=== PATIENT | female | born 1935 | race Caucasian/White ===

== ENCOUNTER 2019-01-25 05:14 | Inpatient (IN) ==
[2019-01-25] MEDS ORDERED: DUONEB (A & A) INH ONE ×2 (05:24→06:02)
--- NOTE | 2019-01-25 05:50 | EKG Report ---
Test Performed on : 01/25/2019 05:24:28 AM Test Reason : sob Blood Pressure : / mmHG Vent. Rate : 077 BPM Atrial Rate : 072 BPM P-R Int : 000 ms QRS Dur : 086 ms QT Int : 372 ms P-R-T Axes : 000 095 173 degrees QTc Int : 420 ms Atrial fibrillation. with premature ventricular or aberrantly conducted complexes. Rightward axis Low voltage QRS Septal infarct , age undetermined Abnormal ECG When compared with ECG of 06-JUN-2018 11:40, Atrial fibrillation. has replaced Sinus rhythm. Right bundle branch block is no longer present Septal infarct is now present Unconfirmed Result
[2019-01-25 06:23] LABS: INR 0.99; PROTIME 13.6 Seconds (11.0-16.0)
[2019-01-25 06:24] LABS: BASO# 0.04 X1000 (0.0-0.2); BASO% 0.4 % (0.0-0.8); EOS# 0.45 X1000 (0.0-0.7); EOS% 4.2 % (0.0-10.0); HEMATOCRIT 35.2 % (37.0-47.0); HEMOGLOBIN 11.5 g/dL (12.0-16.0); IMM GRAN# 0.02 X1000 (0.0-0.04); IMM GRAN% 0.2 % (0.0-0.5); LYMPH# 4.15 X1000 (1.2-3.4); MCH 27.4 PG (27-31); MCHC 32.7 g/dL (33-37); MONO# 1.22 X1000 (0.11-0.59); MONO% 11.5 % (1.7-9.3); NEUT# 4.77 X1000 (1.4-6.5); NEUT% 44.7 % (42.2-75.2); PLT 370 X1000 (130-400); PTT 40.1 Seconds (22.3-41.8); RBC 4.19 XMIL (4.2-5.4); RDW 16.5 % (11.5-14.5); WBC 10.65 X1000 (4.8-10.8)
[2019-01-25 06:40] LABS: ALBUMIN 4.2 g/dL (3.5-5.0); CALCIUM 9.7 mg/dL (8.8-10.2); CREATININE 1.1 mg/dL (0.5-0.9); POTASSIUM 4.8 mmol/L (3.5-5.1); TOTAL PROTEIN 7.1 g/dL (6.3-8.3)
[2019-01-25] MEDS ORDERED: ROCEPHIN 1 GM in NS 50 ML IV ONE (06:51)
[2019-01-25] MEDS ORDERED: ALBUTEROL NEB INH ONE (06:52)
[2019-01-25] MEDS ORDERED: ZITHROMAX 500 MG/NS 500 MG/250 ML IVPB IV ONE (06:52)
--- NOTE | 2019-01-25 06:59 | PROVIDER DOCUMENTATION ---
HPI-General Adult - General Chief Complaint: Shortness of Breath Stated Complaint: SOB Time Seen by Provider: 01/25/19 05:42 Source: patient Allergies/Adverse Reactions: Patient Allergies Allergy/AdvReac Type Severity Reaction Status Date / Time No Known Allergies Allergy Verified 01/25/19 05:27 Home Medications: Home Medication List Medication Instructions Recorded Confirmed Last Taken Type Amlodipine Besylate 10 mg PO DAILY 05/14/14 01/25/19 Unknown History Carvedilol 6.25 mg PO BID CC 05/14/14 01/25/19 Unknown History Omeprazole 20 mg PO DAILY@0700 05/14/14 01/25/19 Unknown History Simvastatin 40 mg PO QHS 05/14/14 01/25/19 Unknown History Aspirin [Aspir-Low] 81 mg PO DAILY 06/04/18 01/25/19 Unknown History Cholecalciferol (Vitamin D3) 2,000 unit PO DAILY 06/04/18 01/25/19 Unknown History [D3-2000] Fenofibrate Nanocrystallized 145 mg PO QHS 06/04/18 01/25/19 Unknown History [Fenofibrate] Hydrochlorothiazide 25 mg PO DAILY 06/04/18 01/25/19 Unknown History Levothyroxine [Synthroid] 100 microgm PO DAILY@0700 06/04/18 01/25/19 Unknown History Melatonin 5 mg PO QHS 06/04/18 01/25/19 Unknown History Multivit-Minerals/Folic/Ginkgo 1 ea PO DAILY 06/04/18 01/25/19 Unknown History [One Daily For Women 50+ Adv Tb] Polyethylene Glycol 3350 1,700 gm PO DAILY 06/04/18 01/25/19 Unknown History [Laxaclear] Ubidecarenone [Coenzyme Q10] 100 mg PO DAILY 06/04/18 01/25/19 Unknown History Cyclosporine 0.05% Oph Drops 1 drp BOTH EYES BID 01/25/19 01/25/19 Unknown History [Restasis 0.05% Oph Drops] Losartan/Hctz [Hyzaar 50/12.5 mg] 1 ea PO DAILY PRN 01/25/19 01/25/19 Unknown History Sertraline HCl 25 mg PO HS 01/25/19 01/25/19 Unknown History - History of Present Illness -Gen Adult Nature of Presenting Problems: Patient is a 83 year old white female who presents with worsening cough, orthopnea, swelling, and weight gain for past 1-2 weeks. She states it has been much worse since yesterday. No documented fever or CP. SOB is worse with exert ion. Followed by Dr. Frausto. Review of Systems - Adult - REVIEW OF SYSTEMS - ADULT Constitutional: reports: fatijimbo. denies: fever Eyes: reports: no symptoms reported Ears, Nose, Mouth & Throat: reports: no symptoms reported Cardiovascular: reports: no symptoms reported Respiratory: reports: see HPI Gastrointestinal: reports: no symptoms reported Genitourinary: reports: no symptoms reported Musculoskeletal: reports: no symptoms reported Integumentary: reports: no symptoms reported Neurological: reports: no symptoms reported Psychiatric: reports: no symptoms reported Endocrine: reports: no symptoms reported Hematologic/Lymphatic: reports: no symptoms reported Allergic/Immunologic: reports: no symptoms reported Past History - Adult - PAST MEDICAL HISTORY-ADULT Review of Records: reports: Nursing Assessment Review, Medications Reviewed Major Childhood Illnesses: reports: denies history Cardiovascular: reports: cardiac disease, CAD, HTN, hyperlipidemia Gastrointestinal: reports: GERD Endocrine/Immune: reports: thyroid disorder - PRIOR SURGERIES/PROCEDURES Surgical/Procedure History: reports: CABG, cholecystectomy - IMMUNIZATION STATUS Childhood Immunizations: See Nurse Assessment Flu Vaccine: See Nurse Assessment - FAMILY HISTORY Family History: reviewed, not pertinent Physical Exam-General - CONSTITUTIONAL General Appearance: mild distress (resp distress.) - EYES Eyes: PERRL/EOMI, pink conjunctivae - HEAD, EARS, NOSE, MOUTH & THROAT HENMT: normocephalic/atraumatic, moist mucous membranes, pharynx normal. negative: pharyngeal erythema - NECK Neck: non-tender, full range of motion - RESPIRATORY Respiratory: chest non-tender, accessory muscle use (mild.), other (diminished diffusely.) - CARDIOVASCULAR Cardiovascular: normal peripheral pulses, regular rate, rhythm, no edema, no JVD - GASTROINTESTINAL (ABDOMEN) Abdominal Exam: normal bowel sounds, non tender, soft - MUSCULOSKELETAL Back Exam: normal inspection, no CVA tenderness Extremity: normal range of motion, non-tender, normal capillary refill - SKIN Integumentary: normal color, normal turgor, warm/dry - NEUROLOGIC Neurologic: no motor/sensory deficits. negative: facial droop, focal weakness, sensory deficit - PSYCHIATRIC Psych/Mental Status: normal mood/affect Progress - PLAN OF CARE/RESULTS Progress/Plan/Lab Results: Vital Signs - 8 hr 01/25/19 05:25 01/25/19 05:30 01/25/19 06:10 Temperature 98.0 F Pulse Rate 84 75 74 Respiratory Rate 34 H 16 14 Blood Pressure 194/87 O2 Sat by Pulse Oximetry 90 L 94 L 95 01/25/19 06:29 Temperature Pulse Rate 77 Respiratory Rate 26 H Blood Pressure 165/94 O2 Sat by Pulse Oximetry 95 Laboratory Results - last 24 hr 01/25/19 01/25/19 01/25/19 05:43 05:43 05:43 WBC 10.65 RBC 4.19 L Hgb 11.5 L Hct 35.2 L MCV 84.0 MCH 27.4 MCHC 32.7 L RDW Std Deviation 16.5 H Plt Count 370 MPV 10.0 Immature Gran % (Auto) 0.2 Neut % (Auto) 44.7 Lymph % (Auto) 39.0 [place] % (Auto) 11.5 H Eos % (Auto) 4.2 Baso % (Auto) 0.4 Immature Gran # (Auto) 0.02 Neut # (Auto) 4.77 Lymph # (Auto) 4.15 H [place] # (Auto) 1.22 H Eos # (Auto) 0.45 Baso # (Auto) 0.04 PT 13.6 INR 0.99 PTT (Actin FS) 40.1 Sodium 132 L Potassium 4.8 Chloride 101 Carbon Dioxide 17 L Anion Gap 14 BUN 24 H Creatinine 1.1 H Estimated GFR/1.73 m2 48 BUN/Creatinine Ratio 22 Glucose 130 H Calculated Osmolality 270 Calcium 9.7 Total Bilirubin 1.00 AST 41 H ALT 16 Alkaline Phosphatase 82 Creatine Kinase 66 Troponin T Total Protein 7.1 Albumin 4.2 Globulin 3.0 Albumin/Globulin Ratio 1.0 01/25/19 05:43 WBC RBC Hgb Hct MCV MCH MCHC RDW Std Deviation Plt Count MPV Immature Gran % (Auto) Neut % (Auto) Lymph % (Auto) [place] % (Auto) Eos % (Auto) Baso % (Auto) Immature Gran # (Auto) Neut # (Auto) Lymph # (Auto) [place] # (Auto) Eos # (Auto) Baso # (Auto) PT INR PTT (Actin FS) Sodium Potassium Chloride Carbon Dioxide Anion Gap BUN Creatinine Estimated GFR/1.73 m2 BUN/Creatinine Ratio Glucose Calculated Osmolality Calcium Total Bilirubin AST ALT Alkaline Phosphatase Creatine Kinase Troponin T < 0.010 Total Protein Albumin Globulin Albumin/Globulin Ratio Orders Category Date Time Status Cardiac Monitoring DIRECTED Care 01/25/19 05:24 Active Oxygen Therapy- ED Nursing DIRECTED Care 01/25/19 05:24 Active Saline Loc NOW Care 01/25/19 05:24 Active CHEST-PORTABLE [RAD] Stat Exams 01/25/19 05:54 Taken BLOOD CULTURE [BLDCUL] Stat Lab 01/25/19 06:51 Uncollected CBC WITH ELECTRONIC DIFF [HEME] Stat Lab 01/25/19 05:43 Completed CK PROFILE [SP CHEM] Stat Lab 01/25/19 05:43 Completed COMPREHENSIVE METABOLIC PANEL [CHEM] Stat Lab 01/25/19 05:43 Completed LACTATE, PLASMA [CHEM] Stat Lab 01/25/19 06:53 Uncollected PRO B-NATRIURETIC PEPTIDE Stat Lab 01/25/19 05:43 Received PROTIME WITH INR [COAG] Stat Lab 01/25/19 05:43 Completed PTT [COAG] Stat Lab 01/25/19 05:43 Completed TROPONIN T Stat Lab 01/25/19 05:43 Completed Albuterol 2.5MG/Ipratrop 0.5MG [Duoneb (A & A)] Med 01/25/19 05:24 Discontinued 3 ml INH NOW ONE Albuterol 2.5MG/Ipratrop 0.5MG [Duoneb (A & A)] Med 01/25/19 06:02 Discontinued 3 ml INH NOW ONE Albuterol [Albuterol Neb] Med 01/25/19 06:52 Discontinued 2.5 mg INH NOW ONE Azithromycin 500 mg/Ns [Zithromax 500 mg/Ns] Med 01/25/19 06:52 Active 500 mg in 250 ml IV NOW CefTRIAXONE [Rocephin] 1 gm Med 01/25/19 06:51 Active 0.9% Sodium Chloride Inj [Ns] 50 ml IV NOW Aerosol Treatments Routine Oth 01/25/19 05:25 Completed Aerosol Treatments Routine Oth 01/25/19 06:02 Completed Aerosol Treatments Routine Oth 01/25/19 06:52 Active Aerosol Treatments Stat Ot 01/25/19 05:25 Completed Aerosol Treatments Stat Oth 01/25/19 06:02 Completed Aerosol Treatments Stat Oth 01/25/19 06:52 Active CP/SOB/Palp >45 yrs of Age Stat Oth 01/25/19 05:23 Ordered EKG [EKG] Stat Ther 01/25/19 05:24 Draft After neb tx x 2 she appeared more SOB, thus a 3rd was ordered. She has RLL pna on cxr. ABX ordered. Her 12 lead EKG shows afib with rate of 77. She was signed out to Dr Padgett on day shift at 0700. She will need admission. Result Diagrams: 01/25/19 05:43 01/25/19 05:43 - REASSESSMENT Reassessment #1 Time Reassessed: 07:15 Status: unchanged Reassessment Comment: Patient noted to have coarse bibasilar rales & BNP>500 0.Ordered Lasix/ABG - EKG 1 Time of EKG reading by physician:: 08:12 EKG Read and Signed by:: Cecil Padgett Rate: 69 Rhythm: NSR [place]: normal [place] Interval: prolonged (1st degree AVB, no STEMI) ST Wave: non-specific ST changes - XRAY 1 XRAY Study: Chest XRAY Interpretation: RLL infiltrate, cardiomegaly - CONSULTS/PCP/HOSPITALIST Notification #1 *Consult/PCP/Hospitalist*: Dr. Santoro, hospitalist Time Discussed: 08:00 Consult Disposition: Will see in ED, Admit Departure - Departure Date of Disposition Decision: 01/25/19 Time of Disposition Decision: 08:16 DIAGNOSIS: Congestive heart failure Qualifiers: Heart failure type: unspecified Heart failure chronicity: acute Qualified Code(s): I50.9 - Heart failure, unspecified RLL pneumonia Qualifiers: Pneumonia type: due to unspecified organism Qualified Code(s): J18.1 - Lobar pneumonia, unspecified organism Disposition: [facility]CHIATRIC HOSPITAL/[facility] Certified Medical Emergency: Emergent Condition: Stable - Critical Care Note This patient required my direct & personal management of CC.: No Attestation - Physician/ SUMMER Attestation Patient care was provided by Advanced Practice Provider:: No The physician spent face to face time with patient:: Yes Advanced Practice Provider documentation review:: Supervising physician onsite and consulted in the evaluation and care of this patient. The physician did have a face to face encounter with the patient.
[2019-01-25] MEDS ORDERED: LASIX IV ONE (07:20)
[2019-01-25] MEDS ORDERED: TYLENOL PO ONE (07:25)
[2019-01-25 07:48] LABS: BE -2.2 mmoll (-3.0-3.0); BLOOD TYPE ARTERIAL; HCO3-(ACT) 23.1 mmoll (20.0-26.0); O2(CT) 15.6 mL/dL (15.0-23.0); O2HB 93.7 % (95.0-99.0); PCO2(98.6) 30 mmHg (35-45); PO2(98.6) 68 mmHg (60-100); SAMPLE BLOOD; SAO2 95.8 % (95.0-100.0); THB 11.8 g/dL (11.5-17.4); pH(98.6) 7.45 (7.35-7.45)
[2019-01-25 07:55] LABS: ALLEN TEST YES; MODALITY CANNULA
--- NOTE | 2019-01-25 08:20 | Diag Imaging Result Doc PS360 ---
EXAM: CHEST-PORTABLE HISTORY: SOB TECHNIQUE: Single view of the chest was performed portably. COMPARISON: 06/04/2018 FINDINGS: There is cardiomegaly with vascular congestion and alveolar infiltrates new from prior study. Appearance suggests cardiogenic edema. No pleural effusions. There are median sternotomy wires. IMPRESSION: New vascular congestion seen alveolar infiltrates suspicious for cardiogenic edema. Electronically signed by Franny Ramirez 01/25/2019 8:18 AM
[2019-01-25] MEDS ORDERED: DUONEB (A & A) INH PRN (10:08)
[2019-01-25] MEDS ORDERED: ZOFRAN IV PRN (10:08)
[2019-01-25] MEDS ORDERED: TYLENOL PO PRN (10:08)
--- NOTE | 2019-01-25 10:29 | EKG Report ---
Test Performed on : 01/25/2019 08:11:34 AM Test Reason : pain Blood Pressure : / mmHG Vent. Rate : 069 BPM Atrial Rate : 069 BPM P-R Int : 352 ms QRS Dur : 098 ms QT Int : 432 ms P-R-T Axes : 090 085 148 degrees QTc Int : 462 ms Sinus rhythm. with 1st degree AV block. Nonspecific ST and T wave abnormality Abnormal ECG When compared with ECG of 25-JAN-2019 05:24, (Unconfirmed) Sinus rhythm. has replaced Atrial fibrillation. Criteria for Septal infarct are no longer present Nonspecific T wave abnormality no longer evident in Inferior leads Unconfirmed Result
[2019-01-25] MEDS: DUONEB (A & A) INH SCH ×4 (11:10→23:04)
[2019-01-25] MEDS: NORVASC PO SCH (11:17)
[2019-01-25] MEDS: ASPIRIN EC PO SCH (11:17)
[2019-01-25 13:14] LABS: URINE SOURCE CLEAN CATCH
[2019-01-25 13:19] LABS: BILIRUBIN URINE NEGATIVE (NEGATIVE); BLOOD URINE NEGATIVE (NEGATIVE); COLOR STRAW; GLUCOSE URINE NEGATIVE (NEGATIVE); KETONE URINE NEGATIVE (NEGATIVE); LEUKOCYTES URINE TRACE (NEGATIVE); NITRITE URINE NEGATIVE (NEGATIVE); PROTEIN URINE NEGATIVE (NEGATIVE); SP GRAVITY URINE 1.007; TURBIDITY URINE CLEAR (CLEAR); UROBILINOGEN URINE NORMAL (NORMAL)
[2019-01-25 13:20] LABS: UR EPITHELIAL CELLS <10 /HPF (<10); URINE BACTERIA NEGATIVE /HPF; URINE RBC <10 /HPF (<10); URINE WBC <10 /HPF (<10)
--- NOTE | 2019-01-25 15:34 | HISTORY AND PHYSICAL ---
PRIMARY CARE PROVIDER: Dr. Kale Frausto. CHIEF COMPLAINT: Shortness of breath. HISTORY OF PRESENT ILLNESS: Ms Awan is an 83-year-old female who carries a past medical history of coronary artery disease, status post CABG, hypertension, hyperlipidemia, hypothyroidism, diastolic congestive heart failure, who came to the ED for progressively worsening shortness of breath over the last week and a half. She has had a nonproductive cough as well as intermittent wheezes and a headache today, but no reported fever, chills, body aches, nausea, vomiting, or diarrhea, chest pain or palpitations. She came to the ED to be evaluated and was diagnosed with a left lower lobe pneumonia and congestive heart failure exacerbation. She was started on IV antibiotics and given a dose of IV Lasix and placed on supplemental O2. She will be admitted for further evaluation and treatment. PAST MEDICAL HISTORY: 1. Coronary artery disease status post CABG. 2. Hypertension. 3. Hyperlipidemia. 4. Hypothyroidism. 5. Congestive heart failure, diastolic, with a preserved EF of 60%. PAST SURGICAL HISTORY: Cholecystectomy and CABG. SOCIAL HISTORY: No tobacco, alcohol or illicit drug use. She lives with her daughter. She is a . 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 FAMILY HISTORY: Her father is from emphysema, mother from malignancy. REVIEW OF SYSTEMS: Twelve-point review of systems completely negative except for those mentioned in HPI. ALLERGIES: No known drug allergies. HOME MEDICATIONS: As per EMR. PHYSICAL EXAMINATION: VITAL SIGNS: Temperature is 98.3 degrees, heart rate 86, respirations 18, blood pressure 139/65, O2 is 96% on 2 L nasal cannula. GENERAL: Ms. Thorpe is an 83-year-old female who is sitting up in the hospital bed, somewhat short of breath but in no acute distress. HEENT: Atraumatic, normocephalic. PERRL. NECK: Supple. Trachea midline. I did not really appreciate any JVD. PULMONARY: Bilateral breath sounds relatively clear. CARDIOVASCULAR: S1, S2 appreciated. GASTROINTESTINAL: Soft, nontender, nondistended. Positive bowel sounds in four quadrants. LOWER EXTREMITIES: No edema. Bilateral pedal pulses are palpable. NEUROLOGIC: No focal deficits noted. DIAGNOSTIC DATA: Chest x-ray shows no vascular congestion seen; alveolar infiltrates suspicious for cardiogenic edema. EKG shows atrial fibrillation with premature ventricular or aberrant conducted complexes. Follow-up EKG shows a normal sinus rhythm with a first-degree AV block. LABORATORY DATA: White count 10, hemoglobin and hematocrit 11 and 35, platelet count is 370,000. Sodium 132, potassium 4.8, BUN 2.4, creatinine 1.1, blood glucose is 130, AST is 41, ALT 16. Troponin less than 0.010. ProBNP is 5495. ASSESSMENT AND PLAN: 1. Questionable left lower lobe pneumonia. The patient does have some dyspnea, nonproductive cough, as well as some wheezes. Initial chest x-ray was read as a left lower lobe pneumonia and she was initiated on intravenous antibiotics. We will continue with her treatment for now and recheck her chest x-ray in the morning and re-evaluate to see if she will need to continue on antibiotics in the morning. 2. Mild congestive heart failure exacerbation, diastolic. She does have a preserved ejection fraction. We will continue with intravenous Lasix twice a day, strict intake and output, daily weights. Recheck her proBNP in the morning. Her most recent echocardiogram was 60%. Follow up chest x-ray in the morning to see if there is any improvement. Continue on supplemental oxygen. 3. Known coronary artery disease. Denies any chest pain. We will continue to trend her cardiac enzymes, given her congestive heart failure exacerbation. 4. Hypertension. Continue home medications. 5. Hyperlipidemia. Will continue her statin. 6. Hypothyroidism. Continue Synthroid. 7. Mild hyponatremia. We will monitor it closely given that we are giving her diuretics. 8. Chronic kidney disease. Appears to be stable from previous admissions. 9. Further recommendation to follow physician evaluation, laboratory and diagnostic data. Dictated by AMANDA Victoria for Eddie Santoro MD cc: MD Kale Dover MD [facility]ERTabitha
[2019-01-25] MEDS: COREG PO SCH (17:51)
[2019-01-25] MEDS: LASIX IV SCH ×2 (20:14→20:15)
[2019-01-25] MEDS ORDERED: ZOLOFT PO SCH (21:00)
[2019-01-25] MEDS ORDERED: MELATONIN PO SCH (21:00)
[2019-01-25] MEDS ORDERED: TRICOR PO SCH (21:00)
[2019-01-25] MEDS ORDERED: ZOCOR PO SCH (21:00)
--- NOTE | 2019-01-25 22:23 | HISTORY AND PHYSICAL ---
ADDENDUM: Patient was seen and examined by myself. Full note dictated and discussed with nurse practitioner. Patient presented to the hospital with increased work of breathing and shortness of breath. Notes that she has been sick for 1 or 2 weeks with increased coughing, orthopnea. States it worsened yesterday, and therefore she came to the ER today as it was not feeling any better. Her BNP is elevated to 5600, as typically the last one on record 3500. We are going to admit her to the hospital. She does have right lower lobe pneumonia. We will place her on antibiotics, IV Lasix, and will follow. cc: Eddie Santoro MD
[2019-01-26] MEDS: DUONEB (A & A) INH SCH ×2 (03:18→07:23)
[2019-01-26 05:53] LABS: BASO# 0.02 X1000 (0.0-0.2); BASO% 0.2 % (0.0-0.8); EOS% 3.6 % (0.0-10.0); HEMATOCRIT 34.6 % (37.0-47.0); IMM GRAN# 0.01 X1000 (0.0-0.04); IMM GRAN% 0.1 % (0.0-0.5); LYMPH# 2.83 X1000 (1.2-3.4); LYMPH% 33.5 % (20.5-51.1); MCH 26.8 PG (27-31); MCHC 31.8 g/dL (33-37); MCV 84.4 FL (81-99); MONO# 1.15 X1000 (0.11-0.59); MONO% 13.6 % (1.7-9.3); MPV 9.5 FL (7.4-10.4); NEUT# 4.14 X1000 (1.4-6.5); PLT 330 X1000 (130-400); RDW 16.3 % (11.5-14.5); WBC 8.45 X1000 (4.8-10.8)
[2019-01-26 06:26] LABS: ALBUMIN 3.6 g/dL (3.5-5.0); CREATININE 1.3 mg/dL (0.5-0.9); MAGNESIUM 1.8 mg/dL (1.5-2.7); POTASSIUM 3.7 mmol/L (3.5-5.1); TOTAL BILIRUBIN 0.8 mg/dL (0.20-1.00); TOTAL PROTEIN 6.6 g/dL (6.3-8.3)
[2019-01-26 06:36] VITALS: BP 135/68
[2019-01-26] MEDS ORDERED: SYNTHROID PO SCH (07:00)
[2019-01-26] MEDS ORDERED: PRILOSEC PO SCH (07:00)
--- NOTE | 2019-01-26 07:57 | Diag Imaging Result Doc PS360 ---
EXAM: CHEST-PORTABLE - 01/26/2019 HISTORY: Pneumonia TECHNIQUE: Portable chest COMPARISON: 01/25/2019 FINDINGS: There are findings of pulmonary edema/congestive heart failure which appear essentially stable compared to prior. There is no evidence of pneumothorax. IMPRESSION: Pulmonary edema/congestive heart failure similar to prior. Electronically signed by Eric Bryant 01/26/2019 7:54 AM
[2019-01-26] MEDS ORDERED: ZITHROMAX 500 MG/NS 500 MG/250 ML IVPB IV SCH (08:00)
[2019-01-26] MEDS ORDERED: ROCEPHIN 1 GM in NS 50 ML IV SCH (09:00)
[2019-01-26] MEDS ORDERED: ZITHROMAX PO SCH (09:00)
[2019-01-26] MEDS: COREG PO SCH (09:36)
[2019-01-26] MEDS: LASIX IV SCH (09:37)
[2019-01-26] MEDS: ASPIRIN EC PO SCH (09:37)
[2019-01-26] MEDS: NORVASC PO SCH (09:37)
[2019-01-26] MEDS ORDERED: COZAAR PO SCH (21:00)
--- NOTE | 2019-01-27 02:25 | DISCHARGE SUMMARY ---
ADMISSION DATE: 01/25/2019 DISCHARGE DATE: 01/26/2019 DISCHARGE DIAGNOSES: 1. Left lower lobe pneumonia, questionable. 2. Diastolic congestive heart failure with mild exacerbation with an EF at 60% in May. 3. Known coronary artery disease. 4. Hypertension. 5. Hyperlipidemia. 6. Hypothyroidism. 7. Hyponatremia. 8. Known chronic kidney disease. CONSULTATIONS: None. PROCEDURES: None. BRIEF HOSPITAL COURSE: The patient is an 83-year-old female who was admitted and placed on Lasix. Thankfully, she continued to improve. On discharge she is awake, alert. She is in no distress. She is overall feeling better. She states that her symptoms have improved and she wants to go home. DISPOSITION: Patient will be discharged home. She will follow up outpatient with treatment facility of choice. We did give a prescription for Lasix 20 mg and potassium 10 mEq to be taken each day as needed for swelling. She will continue her blood pressure medicine, lisinopril, hydrochlorothiazide, as well as her other medications without any changes. Greater than 30 minutes was spent in total care. cc: Eddie Santoro MD
== END 2019-01-26 10:55 | disposition home or self-care (01) ==
LOC: P.ED 05:14 → P.MEDSURG 09:39
PROVIDERS: ATTEND Family Medicine